=== PATIENT | female | born 1990 | race Caucasian/White ===

== ENCOUNTER 2025-02-06 11:47 | Outpatient (AMB) | payer MEDICARE, MEDICAID, SELFPAY ==
--- NOTE | 2025-02-06 11:45 | MHC.OFFVIS ---
Vital Signs 02/06/25 11:50 Height 5 ft 4 in Weight 188 lb BMI 32.3 BP 122/80 Blood Pressure Location Rt brachial Position Sitting Pulse 109 H Pulse Source Pulse Oximeter Pulse Oximetry (%) 98 Oxygen Delivery Method Room Air Intake Visit Reasons: Re-Establish / Migraine Allergies amoxicillin Allergy (Intermediate, Verified 02/06/25 11:52) Hives HPI Comments Details: Vianey is a 34-year-old female patient with a past medical history of migraine, anxiety, bipolar disorder, gastric sleeve surgery, positive lupus anticoagulat who I was previously following at [facility] for chronic migraine. Upon my departure from [facility], she transferred her care here to [facility] where she wishes to resume her care. She has been receiving Botox therapy every 3 months (though there has been a disruption in her schedule causing increases in her headaches). A few months ago, we also started to utilize nerve blocks for adjunctive therapy and she has been taking Nurtec 75 mg as needed for abortive therapy. When I last saw her for her Botox therapy back in December of 2024, she was still having approximately 3-4 migraines per week lasting often the majority of a full-day associated with light and sound sensitivity, imbalance, and feeling of being ?zoned out?. Nurtec was working well for her for abortive measures with approximately 50% reduction in her headache when taken early in the headache. She has not had luck with a triptans in the past. Prior to receiving Botox treatments, she was having very severe headaches on a daily basis. With Botox therapy however she has seen at least a 50% reduction in the severity of her headaches and is now having 3-4 migraines per week instead of 7 days per week. She also mentions today that she is going to be seeing Rheumatology for question of possible rheumatological disorder. There was some question of related liver disease. She also will be seeing Cardiology provided that she has had a significant change in her heart rate. Her heart rate is often elevated especially with even minimal exertion. She gives the example of today she was in the shower with a heart rate in the 140s feeling short of breath. She is following with primary care for this and was recently started on metoprolol. She has had minimal improvement with the metoprolol and therefore she will be seeing Cardiology soon. Past medication trials: Aimovig 140 mg monthly - no benefit Gabapentin Propranolol-no benefit Fioricet Topamax Amitriptyline Sumatriptan Naratriptan Rizatriptan-currently taking with some benefit Nurtec- currently taking with some benefit PFSH Medical History Severe obesity Migraine Genital HSV Depression Bipolar disease, chronic Anxiety STEFANY positive Surgical History H/O breast augmentation S/P repair of ligament of ankle S/P gastric sleeve procedure Family History (Updated 02/06/25 @ 11:54 by Janee Trotter CMA) Mother Diabetes Uterine cancer Multiple sclerosis Sister ADHD Social History (Updated 02/06/25 @ 11:55 by Janee Trotter CMA) Household Members: Spouse and Children Housing: House Alcohol intake: never Patient Tobacco Use Status: Never used Tobacco Review of Systems Const All systems reviewed & are unremarkable except as noted in HPI and below Physical Exam Exam Exam: Bilateral occipital notch tenderness and bilateral upper trapezius trigger points Vital Signs: Last Vital Signs Pulse 109 H 02/06/25 11:50 BP 122/80 02/06/25 11:50 Pulse Ox 98 02/06/25 11:50 Oxygen Delivery Method Room Air 02/06/25 11:50 BMI result Body Mass Index 32.3 Const General: cooperative, healthy appearing, comfortable and no acute distress Nutritional Appearance: well nourished Orientation/consciousness: patient oriented x3 Limitations: no limitations HEENT Head: Yes normal to inspection and Yes normocephalic Eyes General: appearance normal, both eyes and all related structures Visual Rhodes: normal visual rhodes by confrontation Alignment and Position: alignment normal Periorbital: periorbital findings normal Eyelids: Yes eyelids normal Conjunctivae: conjunctivae normal Sclerae: sclerae normal Back/Spine/Pelvis Cervical Spine: normal cervical lordosis Thoracic/Lumbar Spine: thoracic and lumbar spine normal to inspection Neuro General: patient oriented x3 and deep tendon reflexes 2+ bilaterally Cranial nerves: Yes CN's II-XII intact bilaterally and Yes Facial sensation intact/muscles of mastication intact Cognition (Neuro): normal cognition Gait exam (Neuro): Normal gait present Motor exam (neuro): 5/5 motor strength present throughout and no tremor noted Sensory Exam: double simultaneous stimulation for sensation normal Romberg Test: Negative Pupils: Normal pupillary reactivity/response: bilateral Psych Appearance: grossly normal Mental Status: mental status grossly normal Speech and movement: Normal speech and movement present and Clear speech present Affect: normal affect Attitude: cooperative Thought process: Normal thought process present Thought content: Normal thought content present Insight: Good insight present (Psych) Judgement: Good judgement present (Psych) Office Procedures Nerve Block Details: Bilateral Greater Occipital Nerve block procedure: Laterally: Bilateral Indications: Occipital neuralgia Current allergies and current list of medications were reviewed prior to procedure, verbal consent was obtained, procedure was explained in detail to the patient prior to starting. Time-out was performed prior to procedure. Following universal hygiene protocols, patient's left occipital area was located by drawing a line between the external occipital protuberance and the mastoid process. The greater occipital nerve was located approximately 2/3 along this multi line claims adjuster to the occiput, and corresponded with the point of maximum tenderness. Alcohol was applied topically to the skin. A 27 gauge needle (aspirating during insertion) was inserted at a 45 degree angle until just above the periosteum. The providers selected agent (s)/medications (as documented in this note) were injected on the left side (directing needle to center, left and right of painful focus any fanning technique). Pressure with gauze pad was held briefly upon the site of puncture to minimize bleeding and to further spread anesthetic subcutaneously. The procedure was repeated on the right side. The patient was monitored for 15 minutes after the procedure and no complications were observed. Post procedure care was reviewed with the patient including application of ice intermittently to the injection sites over the course of the day to reduce inflammation. CPT: 29343-Ugzcprt Occipital Procedure code (CPT) selection complete Therapeutic Injection Therapeutic Injection Details: Trigger point injection procedure: Laterally:Bilateral Indications: Chronic headaches, myofascial pain Following universal hygiene protocol, after explaining the risks and benefits as well as hazards of the procedure to the patient, consent was signed and placed in the chart. Time-out prior to starting the procedure was performed. The areas over the bilateral trapezius were cleansed with alcohol. 1 Sites in each trapezius muscle injected with a 27 gauge 1.5 in needle with myofascial spasm. Patient tolerated the procedure well, localized bleeding was controlled. Patient monitored in the clinic for 15 minutes for complications. Patient was discharged home with instructions to apply ice to the back of their head as needed. 36837-Eclvrix Point Injection 1 or 2 sites All charges added?: Procedure code (CPT) selection complete Office Meds bupivacaine (PF) 0.25 % (2.5 mg/mL) injection solution Performing Provider: Delfina Wright CNP Performing Location: [facility] [place] [facility] Administered by: Delfina Wright CNP on 02/06/25 12:44 Dose Route Admin Location Dispensed Lot Number Expiration Date [facility] [place]NOTE 2] Handicapped Teacher 6 mL Infiltration 10 mL [id number] [employer] CoachSeek Total Dispensed Waste 10 mL 40 % bupivacaine (PF) 0.25 % (2.5 mg/mL) injection solution Performing Provider: Delfina Wright CNP Performing Location: [facility] [place] [facility] Administered by: Delfina Wright CNP on 02/06/25 12:44 Dose Route Admin Location Dispensed Lot Number Expiration Date [facility] [place]NOTE 2] Handicapped Teacher 3 mL Infiltration 10 mL [id number] [employer] CoachSeek Total Dispensed Waste 10 mL 70 % Assessment & Plan Assessment & Plan (1) Chronic migraine without aura without status migrainosus, not intractable: Code(s): G43.709 - Chronic migraine without aura, not intractable, without status migrainosus Category: Medical Plan Vianey is a 34-year-old female patient with a past medical history of migraine, anxiety, bipolar disorder, gastric sleeve surgery, positive lupus anticoagulat who I was previously following at [facility] for chronic migraine. She has seen some improvement with her Botox therapy and nerve blocks however provided that she is still having 3-4 migraines per week there is still significant room for improvement. We discussed possibly try a once monthly anti CGRP intractable in addition to her current regimen. For now however, we will hold off on any new pharmaceutical therapies given that she is still undergoing workups with other specialties and may be placed on other medications in the near future. I did discuss with her Nerivio for adjunct therapy which can be used both as a preventive and abortive measure. She is open to this idea and I will send the prescription. We will book her for early March when she is due for her Botox therapy and she received nerve blocks and trigger point injections today in office. I will send refills on her current abortive which include Nurtec and rizatriptan. -Trial use of Nerivio device -Continue Nurtec 75 mg and rizatriptan 10 mg for abortive therapy -Continue Botox due 03/29 -Will continue nerve blocks (occipital nerve blocks and trigger point injections provided in office today) -Conosider a trial of an intractable anti CGRP therapy (Ajovy or Emgality) in the future Orders: Orders AMB Trigger Point Injection 02/06/25 G43.709 - Chronic migraine without aura, not intractable, without status migrainosus, M54.81 - Occipital neuralgia AMB Nerve Block 02/06/25 G43.709 - Chronic migraine without aura, not intractable, without status migrainosus, M54.81 - Occipital neuralgia Medications: New onabotulinumtoxinA (Botox) 155 units IM ONCE 1 ea 4RF 12 weeks Coding Level of Care Code New Pt Level 4 (46085) Diagnoses Chronic migraine without aura without status migrainosus, not intractable G43.709 CPT Codes Nerve Block - CPT: 90272-Bbfjykm Occipital ([id number]) Therapeutic Injection - Ther Injection 1: 29168-Sxoqztt Point Injection 1 or 2 sites ([id number])
[2025-02-06 11:50] VITALS: BP 122/80; PULSE 109; O2SAT 98; BMI 32.3
== END 2025-02-06 12:48 | disposition home or self-care (01) ==
LOC: HO.HSM 11:47
PROVIDERS: PCP Nurse Practitioner Gerontology; Visit Provider Nurse Practitioner
DX: G43.709 Chronic migraine without aura, not intractable, without status migrainosus (principal)
CPT/HCPCS: 20552; 64405; 99204

== ENCOUNTER → 2025-02-06 11:47 | Outpatient (BNVA) | payer MEDICARE, MEDICAID, SELFPAY | PROVIDERS: PCP Nurse Practitioner Gerontology; Visit Provider Nurse Practitioner | DX: G43.709 Chronic migraine without aura, not intractable, without status migrainosus (principal); M79.18 Myalgia, other site | CPT/HCPCS: 20552; 64405; 99202; J0665 ==

== ENCOUNTER 2025-03-14 10:19 | Outpatient (AMB) | payer MEDICARE, MEDICAID, SELFPAY ==
--- NOTE | 2025-03-14 10:25 | A.OFFVIS_ITS ---
Vital Signs 03/14/25 10:32 Height 5 ft 4 in Weight 178 lb BMI 30.6 BP 118/78 Blood Pressure Location Lt brachial Position Sitting Respiration 16 Pulse 117 H Pulse Source Pulse Oximeter Pulse Oximetry (%) 100 Oxygen Delivery Method Room Air Intake Visit Reasons: nerve block Mall Manager Required: No Accompanied by: Spouse Allergies amoxicillin Allergy (Intermediate, Verified 03/14/25 10:34) Hives Medication List - Last Reconciled 03/16/25 by Delfina Wright CNP galcanezumab-gnlm (Emgality Pen) 240 mg (2 mL) subcut ONCE galcanezumab-gnlm (Emgality Pen) 120 mg subcut QMONTH lisdexamfetamine 70 mg PO DAILY metoprolol succinate ER 25 mg PO DAILY onabotulinumtoxinA (Botox) 155 units IM ONCE 12 weeks ondansetron 4 mg PO Q6H PRN rimegepant (Nurtec ODT) 75 mg PO DAILY PRN rizatriptan take 1 tab at onset of headache; if no relief may repeat 1 tab after at least 2 hrs; max = 3 tabs/24 hr PO tirzepatide (weight loss) (Zepbound) 10 mg subcut QWEEK trazodone 50 - 150 mg PO BEDTIME PRN HPI Comments Details: Vianey is a 34-year-old female patient with a past medical history of migraine, anxiety, bipolar disorder, gastric sleeve surgery, positive lupus anticoagulat who I was previously following at [facility] for chronic migraine. She is here today for a nerve block injection. To review: She has been receiving Botox therapy every 3 months (though there has been a disruption in her schedule causing increases in her headaches). A few months ago, we also started to utilize nerve blocks for adjunctive therapy and she has been taking Nurtec 75 mg as needed for abortive therapy. When I last saw her for her Botox therapy back in December of 2024, she was still having approximately 3-4 migraines per week lasting often the majority of a full-day associated with light and sound sensitivity, imbalance, and feeling of being ?zoned out?. Nurtec was working well for her for abortive measures with approximately 50% reduction in her headache when taken early in the headache. She has not had luck with a triptans in the past. Prior to receiving Botox treatments, she was having very severe headaches on a daily basis. With Botox therapy however she has seen at least a 50% reduction in the severity of her headaches and is now having 3-4 migraines per week instead of 7 days per week . At the time of her last visit she also mentioned that she was going to be seeing Rheumatology for questionable possible rheumatological disorder and question of related liver disease. She has also seen Cardiology for significant elevations in her heart rate and feelings of shortness of breath. She has been recently started on metoprolol without much improvement in her symptoms. She tells me today that overall when she gets the trigger point and occipital nerve blocks performed, she is getting about 1-2 weeks of headache improvement but unfortunately after this headaches return. She has still seen a near 50% overall total of headache reduction since starting back on Botox therapy though she does note that headaches are still part of her day-to-day life. They are still occuring daily with varying intensities. She continues to have migraine type headaches 3-4 times per week. Will be seeing cardiology in the beginning of April. Past medication trials: Aimovig 140 mg monthly - no benefit Gabapentin Propranolol-no benefit Fioricet Topamax Amitriptyline Sumatriptan Naratriptan Rizatriptan-currently taking with some benefit Nurtec- currently taking with some benefit PFSH Medical History Severe obesity Migraine Genital HSV Depression Bipolar disease, chronic Anxiety STEFANY positive Surgical History H/O breast augmentation S/P repair of ligament of ankle S/P gastric sleeve procedure Family History (Updated 02/06/25 @ 11:54 by Janee Trotter CMA) Mother Diabetes Uterine cancer Multiple sclerosis Sister ADHD Social History (Updated 02/06/25 @ 11:55 by Janee Trotter CMA) Household Members: Spouse and Children Housing: House Alcohol intake: never Patient Tobacco Use Status: Never used Tobacco Review of Systems Const All systems reviewed & are unremarkable except as noted in HPI and below Physical Exam Exam Exam: Bilateral occipital notch tenderness and bilateral upper trapezius trigger points Vital Signs: Last Vital Signs Pulse 117 H 03/14/25 10:32 Resp 16 03/14/25 10:32 BP 118/78 03/14/25 10:32 Pulse Ox 100 03/14/25 10:32 Oxygen Delivery Method Room Air 03/14/25 10:32 BMI result Body Mass Index 30.6 Const General: cooperative, healthy appearing, comfortable and no acute distress Nutritional Appearance: well nourished Orientation/consciousness: patient oriented x3 Limitations: no limitations HEENT Head: Yes normal to inspection and Yes normocephalic Eyes General: appearance normal, both eyes and all related structures Visual Rhodes: normal visual rhodes by confrontation Alignment and Position: alignment normal Periorbital: periorbital findings normal Eyelids: Yes eyelids normal Conjunctivae: conjunctivae normal Sclerae: sclerae normal Back/Spine/Pelvis Other: trigger points to bilateral trapezius muscles and bilateral occipital notch tenderness Cervical Spine: normal cervical lordosis Thoracic/Lumbar Spine: thoracic and lumbar spine normal to inspection Neuro General: patient oriented x3 and deep tendon reflexes 2+ bilaterally Cranial nerves: Yes CN's II-XII intact bilaterally and Yes Facial sensation intact/muscles of mastication intact Cognition (Neuro): normal cognition Gait exam (Neuro): Normal gait present Motor exam (neuro): 5/5 motor strength present throughout and no tremor noted Sensory Exam: double simultaneous stimulation for sensation normal Romberg Test: Negative Pupils: Normal pupillary reactivity/response: bilateral Psych Appearance: grossly normal Mental Status: mental status grossly normal Speech and movement: Normal speech and movement present and Clear speech present Affect: normal affect Attitude: cooperative Thought process: Normal thought process present Thought content: Normal thought content present Insight: Good insight present (Psych) Judgement: Good judgement present (Psych) Office Procedures Nerve Block Details: Bilateral Greater Occipital Nerve block procedure: Laterally: Bilateral Indications: Occipital neuralgia Current allergies and current list of medications were reviewed prior to procedure, verbal consent was obtained, procedure was explained in detail to the patient prior to starting. Time-out was performed prior to procedure. Following universal hygiene protocols, patient's left occipital area was located by drawing a line between the external occipital protuberance and the mastoid process. The greater occipital nerve was located approximately 2/3 along this director of online education to the occiput, and corresponded with the point of maximum tenderness. Alcohol was applied topically to the skin. A 27 gauge needle (aspirating during insertion) was inserted at a 45 degree angle until just above the periosteum. The providers selected agent (s)/medications (as documented in this note) were injected on the left side (directing needle to center, left and right of painful focus any fanning technique). Pressure with gauze pad was held briefly upon the site of puncture to minimize bleeding and to further spread anesthetic subcutaneously. The procedure was repeated on the right side. The patient was monitored for 15 minutes after the procedure and no complications were observed. Post procedure care was reviewed with the patient including application of ice intermittently to the injection sites over the course of the day to reduce inflammation. CPT: 28971-Veraijs Occipital Procedure code (CPT) selection complete Therapeutic Injection Therapeutic Injection Details: Trigger point injection procedure: Laterally:Bilateral Indications: Chronic headaches, myofascial pain Following universal hygiene protocol, after explaining the risks and benefits as well as hazards of the procedure to the patient, consent was signed and placed in the chart. Time-out prior to starting the procedure was performed. The areas over the bilateral trapezius muscles were cleansed with alcohol. 2 Sites in each trapezius muscle injected with a 27 gauge 1.5 in needle with myofascial spasm. Patient tolerated the procedure well, localized bleeding was controlled. Patient monitored in the clinic for 15 minutes for complications. Patient was discharged home with instructions to apply ice to the back of their head as needed. 80291-Stffqaf Point Injection 3 or more All charges added?: Procedure code (CPT) selection complete Office Meds lidocaine (PF) 10 mg/mL (1 %) injection solution Performing Provider: Delfina Wright CNP Performing Location: [facility] [place] [facility] and [facility] Documented (not given) by: Delfina Wright CNP on 03/14/25 13:07 Reason Not Given: No Longer Necessary bupivacaine (PF) 0.5 % (5 mg/mL) injection solution Performing Provider: Delfina Wright CNP Performing Location: [facility] [place] [facility] Administered by: Delfina Wright CNP on 03/14/25 13:07 Dose Route Admin Location Dispensed Lot Number Expiration Date [facility] [place] Teller Supervisor 6 mL Infiltration 10 mL [id number] XELL[employer] PHARMACE Total Dispensed Waste 10 mL 40 % bupivacaine (PF) 0.5 % (5 mg/mL) injection solution Performing Provider: Delfina Wright CNP Performing Location: [facility] [place] [facility] Sleep-[facility] Administered by: Delfina Wright CNP on 03/14/25 13:08 Dose Route Admin Location Dispensed Lot Number Expiration Date [employer] Teller Supervisor 3 mL Infiltration 10 mL [id number] XELLIA PHARMACE Total Dispensed Waste 10 mL 70 % Assessment & Plan Assessment & Plan (1) Chronic migraine without aura without status migrainosus, not intractable: Code(s): G43.709 - Chronic migraine without aura, not intractable, without status migrainosus Category: Medical (2) Occipital neuralgia: Code(s): M54.81 - Occipital neuralgia Category: Medical (3) Trigger point of shoulder region: Code(s): M25.519 - Pain in unspecified shoulder Category: Medical (4) Muscle pain, myofascial: Code(s): M79.18 - Myalgia, other site Category: Medical Plan Vianey is a 34-year-old female patient with a past medical history of migraine, anxiety, bipolar disorder, gastric sleeve surgery, positive lupus anticoagulat who I was previously following at [facility] for chronic migraine. She is here today for a nerve block injection. Her migraines are still not well controlled though the nerve blocks, trigger point injections, and Botox therapies have been helpful. I would like to start her on a trial of Emgality (240mg loading dose and 120mg maintenance dose) for further migraine prevention. She is agree able and we did review expectations, sideeffects, and education was provided on how to perform the injections. - nerve block today -start trial of Emgality -continue nurtec as needed for migraine acute therapy Orders: Orders AMB Nerve Block 03/14/25 G43.709 - Chronic migraine without aura, not intractable, without status migrainosus, M54.81 - Occipital neuralgia AMB Trigger Point Injection 03/14/25 G43.709 - Chronic migraine without aura, not intractable, without status migrainosus, M25.519 - Pain in unspecified shoulder, M54.81 - Occipital neuralgia, M79.18 - Myalgia, other site Medications: New rizatriptan take 1 tab at onset of headache; if no relief may repeat 1 tab after at least 2 hrs; max = 3 tabs/24 hr PO 20 tabs 3RF galcanezumab-gnlm (Emgality Pen) Loading dose 240 mg (2 mL) subcut ONCE 2 mL 0RF galcanezumab-gnlm (Emgality Pen) 120 mg subcut QMONTH 1 mL 4RF Coding Level of Care Code Est Pt Level 4 (10722) Diagnoses Chronic migraine without aura without status migrainosus, not intractable G43.709 Occipital neuralgia M54.81 Trigger point of shoulder region M25.519 Muscle pain, myofascial M79.18 CPT Codes Nerve Block - CPT: 74859-Tykjtdm Occipital ([id number]) Therapeutic Injection - Ther Injection 2: 81136-Knuwmeq Point Injection 3 or more ([id number])
[2025-03-14 10:32] VITALS: BP 118/78; PULSE 117; RESP 16; O2SAT 100; BMI 30.6
--- OUTSIDE RECORDS SUMMARY | 2025-03-14 11:46 | XMS_ITS | Patient Health Record ---
Author Organization [employer] [facility] Address [address] [place] [address] Care Team Providers Care Harpoon Engagement Planning Operator Name Role Phone Hailey Mills MD Primary Care Provider UnavailBRUNO Sanchez Unavailable [phone] Allergies Allergen (clinical drug ingredient) Drug/Non Drug Allergy documented on EMR Reaction Allergy Type Onset Date Status amoxicillin Amoxicillin anaphylaxis Drug Allergy A ctive Tape red/ inflammation Allergy Ac tive Reason For Referral No Information Medications Medication SIG (Take, Route, Frequency, Duration) Notes Start Date End Date Status Multi Vitamin - 1 tablet Orally Once a day; Duration: 30 day(s) Active traZODone HCl 50 MG 1 tablet at bedtime as needed Orally Once a day; Duration: 30 day(s) 1-3 tabs BID QHS PRN Active Vitamin C 1000 MG 1 tablet Orally Once a day; Duration: 30 day(s) Active Magnesium 200 MG 2 tablets with a meal Orally Once a day; Duration: 30 day(s) bid Active Trintellix 20 MG 1 tablet Orally Once a day; Duration: 30 day(s) QD Active Zofran 4 MG 1 tablet Orally Once a day; Duration: 30 day(s) PRN Active Topiramate 100 MG 1 tablet Orally Once a day; Duration: 30 day(s) bid Active Vitamin B12 100 MCG as directed Orally 2 tabs BID Active Atenolol 25 MG 1 tablet Orally Once a day; Duration: 30 day(s) 12.5 mg Active ASA 1 tab Oral; Duration: 14 days 81mg QD Active metFORMIN HCl 500 MG 1 tablet with a meal Orally Once a day; Duration: 30 day(s) bid Not-Taking Verapamil HCl ER 180 MG 1 capsule Orally Once a day; Duration: 30 day(s) bid Active metFORMIN HCl 850 MG 1 tablet with a meal Orally TWICE A DAY; Duration: 90 days Not-Taking Gabapentin 300 MG 1 capsule Orally Once a day; Duration: 30 day(s) TID Active Simvastatin 20 MG 1 tablet in the evening Orally Once a day; Duration: 90 days 07/24/2020 Not-Taking Orthomolecular Vit D3 50,000 1 by mouth once a week 04/30/2020 Active Aimovig 140 MG/ML as directed Subcutaneous monthly Active Social History Tobacco Use: Social History Observation Description Date Details (start date - stop date) Never Smoker NA - NA Tobacco Use/Smoking Question Answer Notes Are you a nonsmoker Alcohol Screen (Audit-C) Question Answer Notes Did you have a drink containing alcohol in the p ast year? No Points 0 Interpretation Negative Problems Problem Type SNOMED Code ICD Code Onset Dates Problem Status W/U Status Risk Notes Problem Mixed hyperlipidemia (219537029) Mixed hyperlipidemia (E78.2) Active confirmed Problem Metabolic syndrome (031332994) Metabolic syndrome (E88.81) Active confirmed Problem Anxiety disorder (864596430) Anxiety disorder, unspecified (F41.9) Active confirmed Problem Fibromyalgia (294496615) Fibromyalgia (M79.7) Active confirmed Problem Prosthetic breast implant (physical object) (3229696) Breast implant status (Z98.82) Active confirmed Problem Vitamin D deficiency (41016502) Vitamin D deficiency (E55.9) Active confirmed Problem Insulin resistance (833955740) Insulin resistance (E88.81) Active confirmed Problem Irregular periods (77588065) Irregular bleeding (N92.6) Active confirmed Problem Irregular periods (37344047) Irregular periods (N92.6) Active confirmed Problem Cervical intraepithelial neoplasia grade 1 (414363161) SHARON I (cervical intraepithelial neoplasia I) (N87.0) Active confirmed Problem Family history of malignant neoplasm of uterus (786648521) Family history of uterine cancer (Z80.49) Active confirmed Problem Cervicovaginal cytology: Low grade squamous intraepithelial lesion (412272904) LGSIL on Pap smear of cervix (R87.612) Active confirmed Problem 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 confirmed Problem C-reactive protein abnormal (758531075) CRP elevated (R79.82) Active confirmed Problem Rheumatoid arthritis (00681567) Rheumatoid arthritis, involving unspecified site, unspecified rheumatoid factor presence (M06.9) Active confirmed Problem Cerebral infarction due to embolism of cerebral arteries (999696601) Cerebrovascular accident (CVA) due to embolism of cerebral artery (I63.40) Active confirmed Problem Slow transit constipation (14907807) Constipation due to slow transit (K59.01) Active confirmed Problem Human herpes simplex virus antibody (805368665) Herpes simplex antibody positive (R89.4) Active confirmed Plan Of Treatment Pending Test Test Name Order Date Ultrasound Breasts, bilateral 06/23/2017 Future Test Test Name Order Date INSULIN 07/13/2020 Insurance Providers Payer Name Payer Address Payer Phone Subscriber Number Group Number Insured Name Patient Relationship to Insured Coverage Start Date Coverage End Date [id number] [address] [place] [address] [id number] Vianey Cole Self - patient is the insured [place] [address] [place] [address] [id number] Vianey Cole Self - patient is the insured Medical (General) History Medical History History ICD Code migraine headaches with neur ological symptoms (Dr. Janny Álvarez, neuro, and also [facility] in [place]) low grade depression MRSA on and off since last 2009 previous stroke with residual migraines, memory/concentration issues, 2013 fibromyalgia Mild arthritis follwed by rheumatology morbid obesity (PCP Dr. Rebeca cage) -had gastric sleeve 07/08/2020 at [facility] -no complications Flu vaccine 03/2020 done @ pharm Surgical History Surgery Date(Month/Year) ear tubes adenoidectomy breast augmentation left gabi e, due to developmental asymmetry (pt does not know if textured or not?) 04/2006 left ankle surgery 2018 Gastric sleeve -[facility] in [place] on 06/2020 Hospitalization History Reason Date(Month/Year) as above stroke 2014 childbirth 2015 fever and migraine 2016 migraines anxiety (just ER)
--- OUTSIDE RECORDS SUMMARY | 2025-03-14 11:46 | XMS_ITS | Patient Health Record ---
Author Organization [facility] Location Address [address] [place] [id number] Care Team Providers Care Painter Decorator Name Role Phone Hailey Mills MD Primary Care Provider Unavailab le Reason For Referral No Information Medications Medication SIG (Take, Route, Frequency, Duration) Notes Start Date End Date Status tiZANidine HCl 2 MG Take 1 tablet by mouth twice daily as needed prn Oral 03/28/2016 Active clonazePAM 0.5 MG prn Oral 06/29/2016 Active B-2 100 MG Oral 01/22/2016 Active Verapamil HCl ER 180 MG Oral 01/22/2016 Active Gabapentin 600 MG 300/300/600mg Oral 05/10/2017 Active buPROPion HCl ER (SR) 150 MG 1 tab qam and 2 tabs qhs Oral 05/10/2017 Active metFORMIN HCl ER (MOD) 1000 MG qd Oral 06/29/2016 Active Ibuprofen 800 MG TID Oral 05/10/2017 A ctive DULoxetine HCl 60 MG Oral 06/29/2016 Active Magnesium Oxide 400 MG Take 1 tablet by mouth daily Oral 01/22/2016 Active Topamax 100 MG 2 tabs The patient should get meds from pcp see office note Oral 03/04/2016 Active Ambien *please review f or potential update for e-prescription and drug interaction check* 07/19/2017 Active Problems Problem Type SNOMED Code ICD Code Onset Dates Problem Status W/U Status Risk Notes Problem Intracranial and intraspinal phlebitis and thrombophlebitis (G08) 03/04/20 16 Active confirmed Problem Migraine without aura, not refractory (disorder) (113967380) Migraine, unspecified, not intractable, without status migrainosus (G43.909) 01/22/20 16 Active confirmed Problem Obstructive sleep apnea syndrome (disorder) (38359928) Obstructive sleep apnea (adult) (pediatric) (G47.33) 06/29/19 17 Active confirmed Problem Cerebral infarction (405336037) Cerebral infarction, unspecified (I63.9) 03/04/20 16 Active confirmed Problem Amnesia (69119252) Other amnesia (R41.3) 03/04/20 16 Active confirmed Problem Weakness (70922975) Weakness (R53.1) 03/04/20 16 Active confirmed Plan Of Treatment No Information Insurance Providers Payer Name Payer Address Payer Phone Subscriber Number Group Number Insured Name Patient Relationship to Insured Coverage Start Date Coverage End Date [place] [address] [place] [phone] [id number] Vianey Cole Self - patient is the insured [employer] [address] [place] [address] [id number] Vianey Cole Self - patient is the insured [facility] [employer] [address] [place] [address] [id number] Vianey Cole Self - patient is the insured [facility] [address] [place] [address] [id number] Vianey Cole Self - patient is the insured Medical (General) History Surgical History Surgery Date(Month/Year) ear tubes PAST SurgHX Till01/22/2016 breast implant PAST SurgHX Till01/22/2016 adenoids removed PAST SurgHX Till06/2015
== END 2025-03-14 11:11 | disposition home or self-care (01) ==
LOC: HO.HSM 10:20
PROVIDERS: PCP Nurse Practitioner Gerontology; Visit Provider Nurse Practitioner
DX: M54.81 Occipital neuralgia (principal); G43.709 Chronic migraine without aura, not intractable, without status migrainosus; M79.18 Myalgia, other site; M25.519 Pain in unspecified shoulder
CPT/HCPCS: 20553; 64405

== ENCOUNTER → 2025-03-14 10:19 | Outpatient (BNVA) | payer MEDICARE, MEDICAID, SELFPAY | PROVIDERS: PCP Nurse Practitioner Gerontology; Visit Provider Nurse Practitioner | DX: G43.709 Chronic migraine without aura, not intractable, without status migrainosus (principal); M54.81 Occipital neuralgia; M25.519 Pain in unspecified shoulder; M79.18 Myalgia, other site; D68.62 Lupus anticoagulant syndrome | CPT/HCPCS: 20553; 64405; J0665 ==

== ENCOUNTER 2025-04-04 10:29 | Outpatient (AMB) | payer MEDICARE, MEDICAID, SELFPAY ==
--- NOTE | 2025-04-04 10:35 | MHC.OFFVIS ---
Vital Signs 04/04/25 10:41 Height 5 ft 4 in Weight 172 lb 6 oz BMI 29.6 BP 112/78 Blood Pressure Location Lt brachial Position Sitting Respiration 16 Pulse 134 H Pulse Source Pulse Oximeter Pulse Oximetry (%) 99 Oxygen Delivery Method Room Air Intake Visit Reasons: BOTOX 200 Allergies amoxicillin Allergy (Intermediate, Verified 04/04/25 10:42) Hives HPI Comments Details: Vianey is a 34-year-old female patient with a past medical history of migraine, anxiety, bipolar disorder, gastric sleeve surgery, positive lupus anticoagulat who I was previously following at [facility] for chronic migraine. She is here today for Botox therapy. To review: She has been receiving Botox therapy every 3 months (though there has been a disruption in her schedule causing increases in her headaches). A few months ago, we also started to utilize nerve blocks for adjunctive therapy and she has been taking Nurtec 75 mg as needed for abortive therapy. When I last saw her for her Botox therapy back in December of 2024, she was still having approximately 3-4 migraines per week lasting often the majority of a full-day associated with light and sound sensitivity, imbalance, and feeling of being ?zoned out?. Nurtec was working well for her for abortive measures with approximately 50% reduction in her headache when taken early in the headache. She has not had luck with a triptans in the past. Prior to receiving Botox treatments, she was having very severe headaches on a daily basis. With Botox therapy however she has seen at least a 50% reduction in the severity of her headaches and is now having 3-4 migraines per week instead of 7 days per week . She has been following with Rheumatology for question of possible rheumatological disorder and question of related liver disease for which she has also been recently referred to GI. She has also seen Cardiology for unexplained tachycardia and shortness of breath. She has recently started on metoprolol without much improvement in her symptoms. During her last office visit, she reported that she was still seeing some benefit with the occipital nerve blocks and trigger point injections and was having approximately 2 weeks of headache improvement after these injections. With Botox therapy in general, she has seen a near 50% reduction in the overall total of her headaches in terms of frequency, duration, and severity. They were however still occurring daily with varying intensities. She reported an average of 3-4 headache days per week. Today she is here for Botox therapy but tells me that about 1 week ago, she had a very severe migraine for approximately 2 days that was accompanied by severe head pain, light sensitivity, nausea, dizziness, and vomiting. She considered going to the emergency room though held off. Since this migraine however she has had continued head pain, lethargy, and allodynia. She had a lot of question as to why her skin hurt after the migraine attack and did see primary care for this who did complete some blood work. Past medication trials: Aimovig 140 mg monthly - no benefit Gabapentin Propranolol-no benefit Fioricet Topamax Amitriptyline Sumatriptan Naratriptan Rizatriptan-currently taking with some benefit Nurtec- currently taking with some benefit PFSH Medical History Severe obesity Migraine Genital HSV Depression Bipolar disease, chronic Anxiety STEFANY positive Surgical History H/O breast augmentation S/P repair of ligament of ankle S/P gastric sleeve procedure Family History (Updated 02/06/25 @ 11:54 by Janee Trotter CMA) Mother Diabetes Uterine cancer Multiple sclerosis Sister ADHD Social History (Updated 02/06/25 @ 11:55 by Janee Trotter CMA) Household Members: Spouse and Children Housing: House Alcohol intake: never Patient Tobacco Use Status: Never used Tobacco Review of Systems Const All systems reviewed & are unremarkable except as noted in HPI and below Physical Exam Exam Exam: Bilateral occipital notch tenderness and bilateral upper trapezius trigger points Vital Signs: Last Vital Signs Pulse 134 H 04/04/25 10:41 Resp 16 04/04/25 10:41 BP 112/78 04/04/25 10:41 Pulse Ox 99 04/04/25 10:41 Oxygen Delivery Method Room Air 04/04/25 10:41 BMI result Body Mass Index 29.6 Const General: cooperative, healthy appearing, comfortable and no acute distress Nutritional Appearance: well nourished Orientation/consciousness: patient oriented x3 Limitations: no limitations HEENT Head: Yes normal to inspection and Yes normocephalic Eyes General: appearance normal, both eyes and all related structures Visual Rhodes: normal visual rhodes by confrontation Alignment and Position: alignment normal Periorbital: periorbital findings normal Eyelids: Yes eyelids normal Conjunctivae: conjunctivae normal Sclerae: sclerae normal Back/Spine/Pelvis Other: trigger points to bilateral trapezius muscles and bilateral occipital notch tenderness Cervical Spine: normal cervical lordosis Thoracic/Lumbar Spine: thoracic and lumbar spine normal to inspection Neuro General: patient oriented x3 and deep tendon reflexes 2+ bilaterally Cranial nerves: Yes CN's II-XII intact bilaterally and Yes Facial sensation intact/muscles of mastication intact Cognition (Neuro): normal cognition Gait exam (Neuro): Normal gait present Motor exam (neuro): 5/5 motor strength present throughout and no tremor noted Sensory Exam: double simultaneous stimulation for sensation normal Romberg Test: Negative Pupils: Normal pupillary reactivity/response: bilateral Psych Appearance: grossly normal Mental Status: mental status grossly normal Speech and movement: Normal speech and movement present and Clear speech present Affect: normal affect Attitude: cooperative Thought process: Normal thought process present Thought content: Normal thought content present Insight: Good insight present (Psych) Judgement: Good judgement present (Psych) Office Procedures Botulinum toxin Injection Details: Procedure: Botox therapy for Chronic Migraine Laterally: Bilateral Indications: Chronic Migraine Medications: Botox 155units How the med was supplied: Buy and Bill Timeout performed before procedure, patient identified with full name and date of . Risks and benefits of procedure reviewed, as well as site verified, sonsent signed, allergies reviewed, and medication reconsilliatino reviewed/completed. Following universal hygiene protocol and PREEMPT protocol, Botox 200unit vial was reconstituted with 4cc normal saline for a final concentration of 5units/0.1cc. The areas of injection were cleansed with alcohol. A 30g 0.5 needle was used to administer the injections as below. Procerus: 5units midline Vocational Counselor: 5units left and 5units right Frontalis: 10units left and 10units right Temporalis: 20units left and 20units right Occipitalis:15units left and 15units right Cervical paraspinal 10units left and 10units right Trapezius 15units left and 15units right No noted paresthesias during injection 155units of Botox used and 45units wasted per PREEMPT protocol Complications: None Patient was observed for 15 minutes after the procedure and discharged home with instructions to apply ice to their head as needed. 71583 - Migraine Procedure code (CPT) selection complete Office Meds onabotulinumtoxinA 200 unit solution for injection Performing Provider: Delfina Wright CNP Performing Location: [facility] Administered by: Delfina Wright CNP on 04/04/25 11:38 Dose Route Admin Location Dispensed Lot Number Expiration Date [facility] [employer] 155 unit IM 200 units [id number] 08/20/27 9548-3814-34 [employer]ERGAN/BOTOX Total Dispensed Waste 200 units 22.5 % Assessment & Plan Assessment & Plan (1) Chronic migraine without aura without status migrainosus, not intractable: Code(s): G43.709 - Chronic migraine without aura, not intractable, without status migrainosus Category: Medical (2) Muscle pain, myofascial: Code(s): M79.18 - Myalgia, other site Category: Medical (3) Trigger point of shoulder region: Code(s): M25.519 - Pain in unspecified shoulder Category: Medical (4) Allodynia: Code(s): R20.8 - Other disturbances of skin sensation Category: Medical Plan Vianey is a 34-year-old female patient with a past medical history of migraine, anxiety, bipolar disorder, gastric sleeve surgery, positive lupus anticoagulat who I was previously following at [facility] for chronic migraine. She is here today for Botox therapy. She is currently experiencing chronic migraine and recently had a very severe migraine that led to significant allodynia. We did discuss today chronic migraine and severe migraine which can cause central sensitization and lead to allodynia. Often, this is more common to the head and neck area but can spread to the limbs. I suspect that she is experiencing continued allodynia from her severe migraine attack. She has not yet started the Emgality injections and I did encourage her to do so. She plans to start them tonight. Botox therapy was completed without any complications. I will continue her on the Nurtec and rizatriptan for abortive measures. I will follow up with her in 1 month though we can consider whether or not we want to do nerve block and trigger point injections as if her pain is improving at that time we may hold off. -start Emgality injections -continue Botox therapy (next Botox therapy will be due 07/05/2024) -consider occipital nerve blocks and trigger points at next visit that we can hold off headaches are improving -continue use of Nurtec and rizatriptan as needed for acute therapy Orders: Orders AMB Botulinum toxin Injection Today G43.709 - Chronic migraine without aura, not intractable, without status migrainosus Coding Level of Care Code Est Pt Level 3 (41541) Diagnoses Chronic migraine without aura without status migrainosus, not intractable G43.709 Muscle pain, myofascial M79.18 Trigger point of shoulder region M25.519 Allodynia R20.8 CPT Codes Botox Injection - Botox 3: 29163 - Migraine ([id number])
[2025-04-04 10:41] VITALS: BP 112/78; PULSE 134; RESP 16; O2SAT 99; BMI 29.6
== END 2025-04-04 11:32 | disposition home or self-care (01) ==
LOC: HO.HSM 10:30
PROVIDERS: PCP Nurse Practitioner Gerontology; Visit Provider Nurse Practitioner
DX: G43.709 Chronic migraine without aura, not intractable, without status migrainosus (principal); M79.18 Myalgia, other site; M25.519 Pain in unspecified shoulder; R20.8 Other disturbances of skin sensation
CPT/HCPCS: 64615

== ENCOUNTER → 2025-04-04 10:29 | Outpatient (BNVA) | payer MEDICARE, MEDICAID, SELFPAY | PROVIDERS: PCP Nurse Practitioner Gerontology; Visit Provider Nurse Practitioner | DX: G43.709 Chronic migraine without aura, not intractable, without status migrainosus (principal) | CPT/HCPCS: 64615; J0585 ==

== ENCOUNTER 2025-05-12 10:20 | Outpatient (AMB) | payer MEDICARE, MEDICAID, SELFPAY ==
--- NOTE | 2025-05-12 10:50 | A.OFFVIS_ITS ---
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 She is here today for Botox therapy. To review: She has been receiving Botox therapy every 3 months (though there has been a disruption in her schedule causing increases in her headaches). A few months ago, we also started to utilize nerve blocks for adjunctive therapy and she has been taking Nurtec 75 mg as needed for abortive therapy. When I last saw her for her Botox therapy back in December of 2024, she was still having approximately 3-4 migraines per week lasting often the majority of a full-day associated with light and sound sensitivity, imbalance, and feeling of being ?zoned out?. Nurtec was working well for her for abortive measures with approximately 50% reduction in her headache when taken early in the headache. She has not had luck with a triptans in the past. Prior to receiving Botox treatments, she was having very severe headaches on a daily basis. With Botox therapy however she has seen at least a 50% reduction in the severity of her headaches and is now having 3-4 migraines per week i nstead of 7 days per week . She has been following Rheumatology for question possible rheumatological disorder and GI for possible related liver disease. She has been also seen Cardiology for unexplained tachycardia and shortness of. She is currently being worked up and in the process of testing for both Cardiology and GI. During recent visits, she reported that she was still seeing some benefit with the occipital nerve blocks and trigger point injections and was having approximately 2 weeks of headache improvement after these injections. With Botox therapy in general, she has seen a near 50% reduction in the overall total of her headaches in terms of frequency, duration, and severity. They were however still occurring daily with varying intensities. She reported an average of 3-4 headache days per week. I recently started her on Emgality. She has so far taking both loading dose and 1 of the maintenance doses. She last had her maintenance dose on 05/06/2025. She has not yet seen a substantial difference in her headaches since starting the Emgality. She continues in the same frequency and intensity as prior. She has not had any very severe headaches since her last visit like she described at the time of her last visit which was a migraine lasting several days including symptoms of intense allodynia. Past medication trials: Aimovig 140 mg monthly - no benefit Gabapentin Propranolol-no benefit Fioricet Topamax Amitriptyline Sumatriptan Naratriptan Rizatriptan-currently taking with some benefit Nurtec- currently taking with some benefit PFSH Medical History Severe obesity Migraine Genital HSV Depression Bipolar disease, chronic Anxiety STEFANY positive Surgical History H/O breast augmentation S/P repair of ligament of ankle S/P gastric sleeve procedure Family History (Updated 02/06/25 @ 11:54 by Janee Trotter CMA) Mother Diabetes Uterine cancer Multiple sclerosis Sister ADHD Social History (Updated 02/06/25 @ 11:55 by Janee Trotter CMA) Household Members: Spouse and Children Housing: House Alcohol intake: never Patient Tobacco Use Status: Never used Tobacco Review of Systems Const All systems reviewed & are unremarkable except as noted in HPI and below Physical Exam Exam Exam: Bilateral occipital notch tenderness and bilateral upper trapezius trigger points Vital Signs: Last Vital Signs Pulse 128 H 05/12/25 10:53 Resp 16 05/12/25 10:53 BP 118/80 05/12/25 10:53 Pulse Ox 100 05/12/25 10:53 Oxygen Delivery Method Room Air 05/12/25 10:53 BMI result Body Mass Index 28.5 Const General: cooperative, healthy appearing, comfortable and no acute distress Nutritional Appearance: well nourished Orientation/consciousness: patient oriented x3 Limitations: no limitations HEENT Head: Yes normal to inspection and Yes normocephalic Eyes General: appearance normal, both eyes and all related structures Visual Rhodes: normal visual rhodes by confrontation Alignment and Position: alignment normal Periorbital: periorbital findings normal Eyelids: Yes eyelids normal Conjunctivae: conjunctivae normal Sclerae: sclerae normal Back/Spine/Pelvis Other: trigger points to bilateral trapezius muscles and bilateral occipital notch tenderness Cervical Spine: normal cervical lordosis Thoracic/Lumbar Spine: thoracic and lumbar spine normal to inspection Neuro General: patient oriented x3 and deep tendon reflexes 2+ bilaterally Cranial nerves: Yes CN's II-XII intact bilaterally and Yes Facial sensation intact/muscles of mastication intact Cognition (Neuro): normal cognition Gait exam (Neuro): Normal gait present Motor exam (neuro): 5/5 motor strength present throughout and no tremor noted Sensory Exam: double simultaneous stimulation for sensation normal Romberg Test: Negative Pupils: Normal pupillary reactivity/response: bilateral Psych Appearance: grossly normal Mental Status: mental status grossly normal Speech and movement: Normal speech and movement present and Clear speech present Affect: normal affect Attitude: cooperative Thought process: Normal thought process present Thought content: Normal thought content present Insight: Good insight present (Psych) Judgement: Good judgement present (Psych) Office Procedures Nerve Block Details: Bilateral Greater Occipital Nerve block procedure: Laterally: Bilateral Indications: Occipital neuralgia Current allergies and current list of medications were reviewed prior to procedure, verbal consent was obtained, procedure was explained in detail to the patient prior to starting. Time-out was performed prior to procedure. Following universal hygiene protocols, patient's left occipital area was located by drawing a line between the external occipital protuberance and the mastoid process. The greater occipital nerve was located approximately 2/3 along this online tutor to the occiput, and corresponded with the point of maximum tenderness. Alcohol was applied topically to the skin. A 27 gauge needle (aspirating during insertion) was inserted at a 45 degree angle until just above the periosteum. The providers selected agent (s)/medications (as documented in this note) were injected on the left side (directing needle to center, left and right of painful focus any fanning technique). Pressure with gauze pad was held briefly upon the site of puncture to minimize bleeding and to further spread anesthetic subcutaneously. The procedure was repeated on the right side. The patient was monitored for 15 minutes after the procedure and no complications were observed. Post procedure care was reviewed with the patient including application of ice intermittently to the injection sites over the course of the day to reduce inflammation. CPT: 86560-Bglamns Occipital Procedure code (CPT) selection complete Therapeutic Injection Therapeutic Injection Details: Trigger point injection procedure: Laterally:bilateral Indications: Chronic headaches, myofascial pain Following universal hygiene protocol, after explaining the risks and benefits as well as hazards of the procedure to the patient, consent was signed and placed in the chart. Time-out prior to starting the procedure was performed. The areas over the bilateral trapezius muscles were cleansed with alcohol. 2 Sites in each trapezius muscle injected with a 27 gauge 1.5 in needle with myofascial spasm. Patient tolerated the procedure well, localized bleeding was controlled. Patient monitored in the clinic for 15 minutes for complications. Patient was discharged home with instructions to apply ice to the back of their head as needed. 54159-[place] Point Injection 3 or more All charges added?: Procedure code (CPT) selection complete Office Meds bupivacaine (PF) 0.5 % (5 mg/mL) injection solution Performing Provider: Delfina Wright CNP Performing Location: [facility] Administered by: Delfina Wright CNP on 05/12/25 13:08 Dose Route Admin Location Dispensed Lot Number Expiration Date [facility] [employer] Officer 6 mL Infiltration 10 mL [id number] HOSPIR A/PFIZER Total Dispensed Waste 10 mL 40 % bupivacaine (PF) 0.5 % (5 mg/mL) injection solution Performing Provider: Delfina Wright CNP Performing Location: [facility] Administered by: Delfina Wright CNP on 05/12/25 13:08 Dose Route Admin Location Dispensed Lot Number Expiration Date [facility] [employer] Officer 2 mL Infiltration 10 mL [id number] HOSPIR A/PFIZER Total Dispensed Waste 10 mL 80 % Assessment & Plan Assessment & Plan (1) Chronic migraine without aura without status migrainosus, not intractable: Code(s): G43.709 - Chronic migraine without aura, not intractable, without status migrainosus Category: Medical (2) Occipital neuralgia: Code(s): M54.81 - Occipital neuralgia Category: Medical (3) Muscle pain, myofascial: Code(s): M79.18 - Myalgia, other site Category: Medical (4) Trigger point of shoulder region: Code(s): M25.519 - Pain in unspecified shoulder Category: Medical (5) Allodynia: Code(s): R20.8 - Other disturbances of skin sensation Category: Medical Plan Vianey is a 35-year-old female patient with a past medical history of migraine, anxiety, bipolar disorder, gastric sleeve surgery, positive lupus anticoagulat who is here today for trigger point and occipital nerve block injections. I recently started her on Emgality injections which she has so far seem marginal if any benefit. We have been continuing occipital nerve blocks and trigger point injections as well as Botox therapy. Eventually, I would like to stopped the trigger point and occipital nerve block injections if possible. For abortive therapy, she has been using Nurtec with improvement and rizatriptan as needed as well. I will have her continue the same regimen and follow up in 1 month. If able, we can hold off occipital nerve block and trigger point injections depending how she is doing when I see her next. -continue Emgality injections -continue Botox therapy (next Botox therapy will be due 07/05/2024) -consider occipital nerve blocks and trigger points at next visit that we can hold off headaches are improving -continue use of Nurtec and rizatriptan as needed for acute therapy Orders: Orders AMB Nerve Block Today G43.709 - Chronic migraine without aura, not intractable, without status migrainosus, M54.81 - Occipital neuralgia, M79.18 - Myalgia, other site AMB Trigger Point Injection Today G43.709 - Chronic migraine without aura, not intractable, without status migrainosus, M25.519 - Pain in unspecified shoulder, M54.81 - Occipital neuralgia, M79.18 - Myalgia, other site Coding Level of Care Code Est Pt Level 2 (12673) Diagnoses Chronic migraine without aura without status migrainosus, not intractable G43.709 Occipital neuralgia M54.81 Muscle pain, myofascial M79.18 Trigger point of shoulder region M25.519 Allodynia R20.8 CPT Codes Nerve Block - CPT: 18814-Jgmyzlr Occipital ([id number]) Therapeutic Injection - Ther Injection 2: 30762-Zzypyns Point Injection 3 or more ([id number])
[2025-05-12 10:53] VITALS: BP 118/80; PULSE 128; RESP 16; O2SAT 100; BMI 28.5
--- OUTSIDE RECORDS SUMMARY | 2025-05-12 12:34 | XMS_ITS | Patient Health Record ---
Author Organization [facility] Address [address] [place] [address] Care Team Providers Care Corn Sheller Name Role Phone Hailey Mills MD Primary Care Provider UnavailBRUNO Sanchez Unavailable [phone] Allergies Allergen (clinical drug ingredient) Drug/Non Drug Allergy documented on EMR Reaction Allergy Type Onset Date Status amoxicillin Amoxicillin anaphylaxis Drug Allergy A ctive Tape red/ inflammation Allergy Ac tive Reason For Referral No Information Medications Medication SIG (Take, Route, Frequency, Duration) Notes Start Date End Date Status Multi Vitamin - Tablet 1 tablet Orally Once a day; Duration: 30 day(s) Active traZODone HCl 50 MG Tablet 1 tablet at bedtime as needed Orally Once a day; Duration: 30 day(s) 1-3 tabs BID QHS PRN Active Vitamin C 1000 MG Tablet Chewable 1 tablet Orally Once a day; Duration: 30 day(s) Active Magnesium 200 MG Tablet 2 tablets with a meal Orally Once a day; Duration: 30 day(s) bid Active Trintellix 20 MG Tablet 1 tablet Orally Once a day; Duration: 30 day(s) QD Active Zofran 4 MG Tablet 1 tablet Orally Once a day; Duration: 30 day(s) PRN Active Topiramate 100 MG Tablet 1 tablet Orally Once a day; Duration: 30 day(s) bid Active Vitamin B12 100 MCG Tablet as directed Orally 2 tabs BID Active Atenolol 25 MG Tablet 1 tablet Orally Once a day; Duration: 30 day(s) 12.5 mg Active ASA 1 tab Oral; Duration: 14 days 81mg QD Active metFORMIN HCl 500 MG Tablet 1 tablet with a meal Orally Once a day; Duration: 30 day(s) bid Not-Taking Verapamil HCl ER 180 MG Capsule Extended Release 24 Hour 1 capsule Orally Once a day; Duration: 30 day(s) bid Active metFORMIN HCl 850 MG Tablet 1 tablet with a meal Orally TWICE A DAY; Duration: 90 days Not-Taking Gabapentin 300 MG Capsule 1 capsule Orally Once a day; Duration: 30 day(s) TID Active Simvastatin 20 MG Tablet 1 tablet in the evening Orally Once a day; Duration: 90 days 07/24/2020 Not-Taking Orthomolecular Vit D3 50,000 capsule 1 by mouth once a week 04/30/2020 Active Aimovig 140 MG/ML Solution Auto-injector as directed Subcutaneous monthly Active Social History Tobacco Use: Social History Observation Description Date Details (start date - stop date) Never Smoker NA - NA Social History Drugs/Alcohol: Social Info Question Answer Notes Alcohol Screen (Audit-C) Did you have a drink containing alcohol in the past year? No Points 0 Interpretation Negative Drugs Have you used drugs other than those for medical reasons in the past 12 months? 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 Caffeine: none Living with: children Problems Problem Type SNOMED Code ICD Code Onset Dates Problem Status W/U Status Risk Notes Problem Mixed hyperlipidemia (542750305) Mixed hyperlipidemia (E78.2) Active confirmed Problem Metabolic syndrome (753385735) Metabolic syndrome (E88.81) Active confirmed Problem Anxiety disorder (214904263) Anxiety disorder, unspecified (F41.9) Active confirmed Problem Fibromyalgia (846200340) Fibromyalgia (M79.7) Active confirmed Problem Prosthetic breast implant (physical object) (1130548) Breast implant status (Z98.82) Active confirmed Problem Vitamin D deficiency (55185020) Vitamin D deficiency (E55.9) Active confirmed Problem Insulin resistance (909152462) Insulin resistance (E88.81) Active confirmed Problem Irregular periods (33674835) Irregular bleeding (N92.6) Active confirmed Problem Irregular periods (55872503) Irregular periods (N92.6) Active confirmed Problem Cervical intraepithelial neoplasia grade 1 (531275906) SHARON I (cervical intraepithelial neoplasia I) (N87.0) Active confirmed Problem Family history of malignant neoplasm of uterus (105455152) Family history of uterine cancer (Z80.49) Active confirmed Problem Cervicovaginal cytology: Low grade squamous intraepithelial lesion (058054294) LGSIL on Pap smear of cervix (R87.612) Active confirmed Problem 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 confirmed Problem C-reactive protein abnormal (309251018) CRP elevated (R79.82) Active confirmed Problem Rheumatoid arthritis (14621864) Rheumatoid arthritis, involving unspecified site, unspecified rheumatoid factor presence (M06.9) Active confirmed Problem Cerebral infarction due to embolism of cerebral arteries (366464021) Cerebrovascular accident (CVA) due to embolism of cerebral artery (I63.40) Active confirmed Problem Slow transit constipation (63043036) Constipation due to slow transit (K59.01) Active confirmed Problem Human herpes simplex virus antibody (398044651) Herpes simplex antibody positive (R89.4) Active confirmed Plan Of Treatment Pending Test Test Name Order Date Ultrasound Breasts, bilateral 06/23/2017 Future Test Test Name Order Date INSULIN 07/13/2020 Insurance Providers Payer Name Payer Address Payer Phone Subscriber Number Group Number Insured Name Patient Relationship to Insured Coverage Start Date Coverage End Date MEDIC[place] of [id number] [address] [place] [address] [id number] Vianey Cole Self - patient is the insured [place] [address] [place] [address] [id number] Vianey Cole Self - patient is the insured Medical (General) History Medical History History ICD Code migraine headaches with neur ological symptoms (Dr. Janny Álvarez, neuro, and also [facility] in [place]) low grade depression MRSA on and off since last 2009 previous stroke with residual migraines, memory/concentration issues, 2013 fibromyalgia Mild arthritis follwed by rheumatology morbid obesity (PCP Dr. Rebeca cage) -had gastric sleeve 07/08/2020 at [facility] in [place] -no complications Flu vaccine 03/2020 done @ pharm Surgical History Surgery Date(Month/Year) ear tubes adenoidectomy breast augmentation left gabi e, due to developmental asymmetry (pt does not know if textured or not?) 04/2006 left ankle surgery 2018 Gastric sleeve -[facility] [place] on 06/2020 Hospitalization History Reason Date(Month/Year) as above stroke 2014 childbirth 2015 fever and migraine 2016 migraines anxiety (just ER)
== END 2025-05-12 11:33 | disposition home or self-care (01) ==
LOC: HO.HSM 10:21
PROVIDERS: PCP Nurse Practitioner Gerontology; Visit Provider Nurse Practitioner
DX: G43.709 Chronic migraine without aura, not intractable, without status migrainosus (principal); M54.81 Occipital neuralgia; M79.18 Myalgia, other site; M25.519 Pain in unspecified shoulder; R20.8 Other disturbances of skin sensation
CPT/HCPCS: 20553; 64405

== ENCOUNTER → 2025-05-12 10:20 | Outpatient (BNVA) | payer MEDICARE, MEDICAID, SELFPAY | PROVIDERS: PCP Nurse Practitioner Gerontology; Visit Provider Nurse Practitioner | DX: M79.18 Myalgia, other site (principal); M54.81 Occipital neuralgia; G43.709 Chronic migraine without aura, not intractable, without status migrainosus; M25.511 Pain in right shoulder; M25.512 Pain in left shoulder; R20.8 Other disturbances of skin sensation | CPT/HCPCS: 20553; 64405; J0665 ==